=== PATIENT | female | born 1955 | race Caucasian/White ===

== ENCOUNTER 2022-08-12 13:41 | Outpatient (CLI) | payer MEDICARE, SELFPAY ==
[2022-08-12 21:49] LABS: Albumin* 4.1 g/dL (3.3-5.0); Chloride* 105 mmol/L (96-114)
[2022-08-12 21:50] LABS: Potassium* 3.8 mmol/L (3.6-5.1); Sodium* 138 mmol/L (135-149)
[2022-08-12 21:52] LABS: Alkaline Phosphatase* 86 U/L (40-150); Aspartate Amino Transferase* 32 U/L (12-35); Blood Urea Nitrogen* 17 mg/dL (7-30); Carbon Dioxide* 24 mmol/L (20-32); Cholesterol* 150 mg/dL (90-199); Creatinine* 0.9 mg/dL (0.5-1.5); Estimated Glomerular Filt Rate 70 ml/min; Total Protein* 6.6 g/dL (6.0-8.3)
[2022-08-12 21:53] LABS: Alanine Aminotransferase* 32 U/L (4-35); Calcium* 9.5 mg/dL (8.4-10.6); Glucose* 109 mg/dL (60-115); HDL Cholesterol* 54 mg/dL (>=50); LDL Cholesterol Calculated 65 mg/dL (<100); Triglycerides* 157 mg/dL (40-149)
== END 2022-08-12 13:42 | disposition home or self-care (01) ==
PROVIDERS: PCP Family Medicine; Visit Provider Family Medicine
DX: Z00.00 Encounter for general adult medical examination without abnormal findings (principal); E03.9 Hypothyroidism, unspecified; E78.00 Pure hypercholesterolemia, unspecified; I10 Essential (primary) hypertension
CPT/HCPCS: 80053; 80061; 84443

== ENCOUNTER 2022-08-17 15:01 | Outpatient (CLI) | payer MEDICARE, SELFPAY ==
--- NOTE | 2022-08-17 15:30 | CRLHL7_ITS ---
For Patients: As a result of the Century Cures Act, medical imaging exams and procedure reports are released immediately into your electronic medical record. You may view this report before your referring provider. If you have questions, please contact your health care provider. DXA BONE MINERAL DENSITY STUDY Reason for exam: Screening. Right hip arthroplasty. Current height (in): 62.0 Weight (lb): 235.0 Menopause age: 44 Ethnicity: White 1. Have you had a previous hip or vertebral fracture? No. 2. Have you had any fractures during your adult life which did not result from significant trauma (e.g., auto accident)? No. 3. Did either of your parents have a hip fracture? No. 4. Do you smoke? No. 5. Have you ever taken Glucocorticoids? No. 6. Do you have rheumatoid arthritis? No. 7. Do you have secondary osteoporosis? No. 8. Do you drink 3 or more alcoholic drinks per day? No. 9. Are you being treated for osteoporosis? No. 10. Have you ever taken any of the following medications: Actonel, Evista, Fosamax, Miacalcin, Reclast, Boniva, Forteo, HRT (i.e. estrogen/hormone therapy), Protelos, Prolia, Vitamin D, Calcium, other ??? please specify. ANSWER: Yes, calcium. 11. Do you have any of the following medical conditions: Anorexia or bulimia, asthma or emphysema, end stage renal disease, hyperparathyroidism, any seizure disorders, cancer, inflammatory bowel diseases, hysterectomy, other ??? please specify. ANSWER: Yes, hysterectomy. 12. What was your maximum height (inches)? 64 13. Do you perform weight bearing exercise regularly? No. 14. Do you regularly consume dairy products? Yes. 15. Do you drink caffeinated beverages? Yes. 16. At what age did your period start? 11 17. Are you premenopausal? No. 18. How many full term pregnancies have you had? 2 19. Have you ever missed your period for more than 6 months in a row (not including or menopause)? No. TECHNIQUE: Bone mineral density study was performed using the [employer]. FINDINGS: The results of the study expressed as bone mineral density (BMD) are as follows: Lumbar spine L1 to L3: BMD: 1.095 g/cm2. T-score: 0.7. Z-score: 2.6. Neck Left: BMD: 0.666 g/cm2. T-score: -1.7. Z-score: 0.0. Total Left: BMD: 0.833 g/cm2. T-score: -0.9. Z-score: 0.5. Radius Left 33%: BMD: 0.642 g/cm2. T-score: -0.9. Z-score: 1.1. IMPRESSION: Osteopenia. *Comparison exams done prior to 03/2020 were performed on different unit, [employer]. COMPARISON: Compared with scan of 08/20/2020, the bone mineral density has decreased by 0.3 percent at the spine and increased by 0.6 percent at the hip. Compared with scan of 04/02/2018, the bone mineral density has increased by 6.9 percent at the spine and increased by 3.8 percent at the hip. FRAX 10-year Fracture Risk Major Osteoporotic Fracture: 8.5 percent Hip Fracture: 1.1 percent Reported Risk Factors: [place] () Neck BMD=0.666, BMI=43.0 Suhail Ferrari M.D. Diagnostic Radiologist [email or web address] DSM/pjt PT/Dictated by: Suhail Ferrari MD @ 08/18/2022 9:23:00 AM (Electronically Signed)
== END 2022-08-17 15:02 | disposition home or self-care (01) ==
PROVIDERS: PCP Family Medicine; Visit Provider Family Medicine
DX: Z13.820 Encounter for screening for osteoporosis (principal); M85.89 Other specified disorders of bone density and structure, multiple sites; Z78.0 Asymptomatic menopausal state
CPT/HCPCS: 77080

== ENCOUNTER 2022-08-22 08:54 | Outpatient (CLI) | payer MEDICARE, SELFPAY ==
--- NOTE | 2022-08-22 09:15 | CRLHL7_ITS ---
For Patients: As a result of the Cures Act, medical imaging exams and procedure reports are released immediately into your electronic medical record. You may view this report before your referring provider. If you have questions, please contact your health care provider. BILATERAL SCREENING MAMMOGRAM WITH COMPUTER-AIDED DETECTION AND TOMOSYNTHESIS TECHNIQUE: CC and MLO views were obtained. These mammographic images have been obtained using full-field digital technique. These mammographic images were interpreted with the benefit of computer-aided detection. Breast Tomosynthesis was used in this interpretation. COMPARISON FILM: 08/09/21, 07/01/20, 06/13/19. FINDINGS: There are scattered areas of fibroglandular density IMPRESSION: There is no radiographic evidence for malignancy. ASSESSMENT: BI-RADS Category 1: Negative RECOMMENDATION: Routine screening mammogram in 1 year. A lay language report of this examination will be provided to the patient. Suhail Ferrari M.D. Diagnostic Radiologist [email or web address] GUNNER/fermin / be/Dictated by: Suhail Ferrari MD @ 08/22/2022 12:18:00 PM (Electronically Signed)
== END 2022-08-22 08:55 | disposition home or self-care (01) ==
PROVIDERS: PCP Family Medicine; Visit Provider Family Medicine
DX: Z12.31 Encounter for screening mammogram for malignant neoplasm of breast (principal)
CPT/HCPCS: 77063; 77067

== ENCOUNTER 2022-08-23 08:32 | Outpatient (CLI) | payer MEDICARE, SELFPAY ==
--- NOTE | 2022-08-23 09:00 | CRLHL7_ITS ---
For Patients: As a result of the Cures Act, medical imaging exams and procedure reports are released immediately into your electronic medical record. You may view this report before your referring provider. If you have questions, please contact your health care provider. MYOCARDIAL PERFUSION SCAN, 08/23/2022 CLINICAL HISTORY: 67-year-old female. Chest tightness. Hypertension. Sleep apnea. Type 2 diabetes. Family history of heart disease. Height: 5 feet 1 inch. Weight: 235 pounds. TECHNIQUE: (Resting SPECT and Stress Gated SPECT with wall motion and ejection fraction) Stress: Pharmacologic - Regadenoson (0.4 mg) (IV) Dose (Stress/Rest): 38 mCi / 10.76 mCi Tc-99m Sestamibi Comparison: None FINDINGS: There is good uptake of activity by the left ventricle. No left ventricular enlargement is noted. End diastolic volume: 49 mL. End systolic volume: 23 mL. There is mild soft tissue attenuation. No other significant fixed or reversible defects are identified. Gated images demonstrate a normal left ventricular ejection fraction of 53 percent. No regional wall motion abnormalities are identified. IMPRESSION: 1) No evidence of significant myocardial ischemia or infarction. 2) Normal left ventricular ejection fraction of 53 percent. This study was jointly reviewed by radiology and cardiology. SOLIS BROWN M.D. Diagnostic/Nuclear Medicine Radiologist [email or web address] JMN:jacinta RICHARDSON M.D. Department of Cardiology jacinta/Dictated by: Solis Brown MD @ 08/23/2022 11:12:00 AM (Electronically Signed)
[2022-08-23] MEDS: REGADENOSON 0.4 MG/5 ML SYRINGE IVP (09:55)
[2022-08-23] MEDS: SODIUM CHLORIDE 0.9 % (FLUSH) 10 ML SYRINGE IVF (09:55)
[2022-08-23 10:35] VITALS: BP 137/78; PULSE 79
--- NOTE | 2022-08-23 11:00 | CRLHL7_ITS ---
For Patients: As a result of the 21st Century Cures Act, medical imaging exams and procedure reports are released immediately into your electronic medical record. You may view this report before your referring provider. If you have questions, please contact your health care provider. INDICATION: DYSPNEA ON EXERTION COMPARISON: none TECHNIQUE: CT volumetric acquisition was performed of the thorax during intravenous infusion of 95 cc Isovue 370 nonionic intravenous contrast. Please note that all CT scans at this facility use dose modulation, iterative reconstruction, and/or weight-based dosing when appropriate to reduce radiation dose to as low as reasonably achievable. FINDINGS: The CT images are of acceptable quality and demonstrate normal uniform vascular enhancement within the pulmonary arteries. There are no suspicious filling defects which would indicate pulmonary thromboemboli. There is no evidence of pleural or pericardial fluid. The heart and thoracic aorta appear normal. There is no evidence of lymphadenopathy within the central mediastinum or within either axilla. On lung window settings, there is no evidence of pneumothorax. The pulmonary parenchyma has uniform density and there is no evidence of hemorrhage or pneumonia. Several small pulmonary nodules are present on the right measuring up to 4 millimeters, 5/80. Mild areas of scarring noted within both lungs dependently. Fatty infiltration of the liver. Gallbladder absent. 2.7 cm hiatal hernia. IMPRESSION: No evidence of pulmonary thromboembolism. No infiltrate or fibrosis. Mild dependent scarring. Few scattered pulmonary nodules measuring up to 4 millimeters. Optional follow-up CT in 1 year. Please note that all CT scans at this facility use dose modulation, iterative reconstruction, and/or weight-based dosing when appropriate to reduce radiation dose to as low as reasonably achievable. Dictated by Suhail Ferrari MD @ 08/23/2022 11:42:58 AM (Electronically Signed)
--- NOTE | 2022-08-23 17:18 | PM.ST ---
Stress Test Note Date Date Seen: 08/23/22 Date of test: 08/23/22 Providers Primary care provider: Cody Yepez Stress test physician: Luis Dudley Stress Test Note Stress test ordered: Lexiscan Indication for test: Chest pain, dyspnea on exertion Stress test medicine: Lexiscan Results discussion: Patient is a very nice lady presents for the above test after review of the cardiac stress test medical history form, she would like to proceed, pretest EKG shows a ventricular rate of 68, blood pressure 142/[address] wave changes are noted, standard Lexiscan protocol is followed over 5 minute., there were no complications, there were no dysrhythmias, she had no chest pain shortness of breath or any other anginal symptoms. She recovered normally in the recovery. Impression: Negative electrographic portion of Lexiscan Follow up suggested: Await nuclear images these will be read by Cardiology and nuclear Medicine, clinical correlation with these will be needed, patient left this testing facility in excellent condition.
== END 2022-08-23 08:33 | disposition home or self-care (01) ==
LOC: STRESS 08:35
PROVIDERS: PCP Family Medicine; Visit Provider Family Medicine
DX: R07.9 Chest pain, unspecified (principal); R06.09 Other forms of dyspnea; R05.9 Cough, unspecified
CPT/HCPCS: 71260; 78452; 93016; 93017; A9500; J2785; Q9967

== ENCOUNTER 2023-08-04 12:23 | Outpatient (CLI) | payer MEDICARE, SELFPAY ==
--- NOTE | 2023-08-04 13:00 | MR_ITS ---
[facility] [address] [facility] [address] Phone:?[phone] Fax:?[phone] Referring Physician Information: Emeka Barker M.D. [address] [facility] [address] Phone:?[phone] Fax:?[phone] Patient:Darci Whitman D.O.B:?1955 Sex:?Female Phone:?[phone] [facility] MRN:?[id number] Exam Date:?08/04/2023 EXAM: MRI EXAMINATION OF THE RIGHT SHOULDER CLINICAL INFORMATION: Right shoulder pain. No specific injury. History of surgery. Evaluate rotator cuff tear. TECHNICAL INFORMATION: Coronal STIR as well as axial, sagittal and coronal PD and T2-weighted images acquired. No prior studies for comparison. INTERPRETATION: Bones: There is a postsurgical appearance of AC joint resection. Mild undersurface spurring involves the acromion. No evidence for an occult fracture or AVN. Rotator Cuff: Series 9 images 8 through 10 demonstrate a 0.8 cm AP by 2.7 cm mediolateral undersurface tear through the central supraspinatus tendon insertion. There is likely a tiny full-thickness component of tear at its anterior aspect. There is no evidence for tendon retraction or muscle belly atrophy. Mild tendinopathy with a slender intrasubstance partial tear involving the anterior infraspinatus tendon. The teres minor tendon is intact. The subscapularis tendon is intact. No appreciable rotator cuff muscle belly atrophy. Coracoacromial arch: Mild undersurface irregularity involving the acromion. The bony acromiohumeral interval is measuring 5 mm. There is no thickening identified of the coracoacromial ligament. Acromioclavicular joint: Status post AC joint resection. No deformity of the underlying supraspinatus tendon. Moderate fluid and edema signal within the subacromial/subdeltoid bursa areas. Biceps tendon: The long head biceps tendon is intact and nondisplaced from the bicipital groove. Glenohumeral joint and labrum: No significant glenohumeral joint effusion. No discrete loose body within the joint. Osteochondral surfaces appear relatively preserved. No discrete SLAP tear. No other definite evidence for labral tear. No discrete paralabral cyst is identified. CONCLUSION: 1. There is a small undersurface tear through the central fibers of the supraspinatus tendon insertion. A tiny full-thickness component appears likely present at its anterior aspect. No tendon retraction or muscle belly atrophy. 2. Mild infraspinatus tendinopathy with a slender intrasubstance partial tear. 3. Status post AC joint resection. Mild to moderate narrowing is measured of the acromiohumeral interval. Moderate subacromial/subdeltoid bursitis. 4. Unremarkable and intact long head biceps tendon. 5. No evidence for glenohumeral chondromalacia. There is no glenohumeral joint effusion. KES Electronically signed on 08/04/2023 2:52:00 PM by Umberto Roman M.D.
== END 2023-08-04 12:24 | disposition home or self-care (01) ==
LOC: MRI 12:24
PROVIDERS: PCP Family Medicine; Visit Provider Orthopaedic Surgery Sports Medicine
DX: M25.511 Pain in right shoulder (principal); M75.101 Unspecified rotator cuff tear or rupture of right shoulder, not specified as traumatic; M75.51 Bursitis of right shoulder
CPT/HCPCS: 73221

== ENCOUNTER 2023-08-11 13:08 | Outpatient (CLI) | payer MEDICARE, SELFPAY | END 2023-08-11 13:09 | disposition home or self-care (01) | PROVIDERS: PCP Family Medicine; Visit Provider Family Medicine | DX: Z01.818 Encounter for other preprocedural examination (principal); E03.9 Hypothyroidism, unspecified; I10 Essential (primary) hypertension; E78.00 Pure hypercholesterolemia, unspecified; E66.9 Obesity, unspecified | CPT/HCPCS: 80053; 80061; 84443 ==

== ENCOUNTER 2023-08-14 08:44 | Day surgery (SDC) | payer MEDICARE, SELFPAY ==
[2023-08-14] VITALS (15 sets, daily range): BP systolic 98–138; BP diastolic 62–98; PULSE 60–72; RESP 14–18; TEMP 36.3–37.2; O2SAT 91–99; BMI 42.5
[2023-08-14] MEDS: fentaNYL 100 MCG/2 ML inj IVP (10:05)
[2023-08-14] MEDS: MIDAZOLAM HCL 1 MG/ML inj IVP (10:05)
[2023-08-14] MEDS: LACTATED RINGERS 1000 ML 1,000 ML 100 ML IV (10:05)
--- NOTE | 2023-08-14 10:13 | SUR.PREOP ---
Pt ready for surgery teds hose on, nasal swab done, shoulder scrub done, pre-op questions answered, await CHAIN PULLER for nerve block
[2023-08-14] MEDS: SODIUM CHLORIDE 0.9 % (FLUSH) 10 ML SYRINGE IVF (10:36)
--- NOTE | 2023-08-14 10:36 | SUR.PREOP ---
TIME?OUT:?1030 PT/RN/MDA?VERIFICATION?OF?SURGICAL?SITE,?PROCEDURE,?AND?CONSENT OBTAINED?PRIOR?TO?INVASIVE?PROCEDURE. right shoulder gray lalitha stokes,pt, consent
[2023-08-14] MEDS: CEFAZOLIN 2 GM in 0.9 % SODIUM CHLORIDE Mini-bag 100 ML IVPB (11:10)
--- NOTE | 2023-08-14 11:27 | W.PM.NB ---
Nerve Block Nerve Block Time Seen by Provider: 10:45 Date Seen: 08/14/23 Type of block requested by surgeon for post-operative analgesia: supraclavicular Side: right Time out performed: Yes Verification of patient name: Yes Verification of date of : Yes Site marking: site marked Name of person performing procedure: pravin Continuous monitoring Was continuous monitoring of O2 sat, B/P, groundwater monitoring technician, recorded every 15 minutes?: Yes Procedure Checklist: sterile prep, needles and gloves Ultrasound guided. Images saved: Yes Medications given in 5ml increments after negative aspiration: Ropivicaine %: 0.5 mL: 20 Needle gauge: 20 Decadron (mg): 10 Precedex (mcg): 25 Patient tolerated procedure well: Yes Block Charges Block Charge (with Pro Fee): Brachial Plexus Use of Ultrasound Machine for Block: Yes- US Guidance/pain block
[2023-08-14] MEDS: EPINEPHrine 1 MG in SODIUM CHLORIDE IRRIG SOLUTION 3,000 ML 3001 MG IRRIGATION ×3 (11:50→12:25)
--- NOTE | 2023-08-14 12:24 | P.ORPRC_ITS ---
Procedure Note Date of procedure: 08/14/23 Procedure: PREOPERATIVE DIAGNOSES: 1. Right shoulder rotator cuff tear. POSTOPERATIVE DIAGNOSES: 1. Right shoulder rotator cuff tear - border subscapularis and high-grade partial-thickness supraspinatus. NAME OF OPERATION: 1. Right shoulder arthroscopic rotator cuff repair - upper border subscapularis and high-grade partial-thickness supraspinatus SURGEON: Emeka Barker MD RADIOTELEPHONE TECHNICAL OPERATOR: Shaggy STEPHENSON. Of note, a skilled certified dental assistant was critical for this case to aide in patient positioning, suture manipulation, arm positioning, instrument positioning, and closure. ANESTHESIA: General plus preoperative supraclavicular block. EBL: 25 mL IMPLANTS: Arthrex 4.75 mm BioComposite SwiveLock suture anchor (x1); Arthrex 5.5 mm BioComposite corkscrew suture anchor (x1); Arthrex 5.5 mm BioComposite SwiveLock suture anchor (x2); COMPLICATIONS: None evident INDICATIONS: The patient is a pleasant, 68-year-old female who has experienced right shoulder pain that has been increasing in recent time. Physical exam and imaging were consistent with a rotator cuff tear. Given their findings, as well as the weakness and pain, and inadequate response to nonoperative management, recommendation was made for surgery. FINDINGS: Exam under anesthesia revealed stable shoulder with excellent range of motion. The diagnostic arthroscopy revealed grade 3 chondromalacia humeral head near the lesser tuberosity. The Subscapularis tendon was torn high-grade partial-thickness with moderate retraction of the upper border. The long head of the biceps tendon was intact. The superior rotator cuff tendon was found to be torn high-grade partial-thickness manner of the posterior to midportion supraspinatus. The labrum was relatively intact. No loose bodies were identified within the pouch or subscapularis recess. PROCEDURE: Following a thorough discussion of risks, benefits, and alternatives, consent was obtained and the right shoulder was marked. The patient was brought to the operating room and placed supine on the operating table. Induction of anesthesia was completed after preoperative supraclavicular block was administered in preop holding. Appropriate time out was performed identifying proper patient, site, and procedure. 2 g IV Ancef was administered within 1 hour of incision preoperatively. The right upper extremity was prepped and draped in the appropriate sterile fashion using ChloraPrep prep. This was after the patient was positioned in the beach chair with their head in neutral alignment and all bony prominences well padded. The shoulder was insufflated with 20mL of normal saline via an 18g spinal needle from a posterior approach. An 11 blade skin incision allowed a blunt trochar to be inserted and diagnostic arthroscopy to be performed with the findings as noted above. An anterior portal was established with an outside in technique. This allowed the probe to be inserted and confirm the diagnostic arthroscopic findings. The shaver was then inserted and allowed debridement of the lesser tuberosity in preparation for rotator cuff repair. Following this, the upper border subscapularis was repaired after debriding the lesser tuberosity with the shaver and [place] cautery. Subscapularis was captured in horizontal mattress fashion with a fiber tape suture. The tails were brought to a single anchor in the lesser tuberosity with excellent reapproximation of the subscap tendon and good excursion/tension. Thereafter, the subacromial space was entered. Here, a complete bursectomy was performed. Further inspection of the supraspinatus and infraspinatus rotator cuff was p erformed. This identified the tear as noted above. The margins of the tear were debrided, and the greater tuberosity was debrided with a combination of the [place] cautery, shaver, and bur on reverse setting. [After gentle decortication, a single corkscrew suture anchor was placed and the 4 tails passed independently. These were tied in tension was relieved on the rotator cuff. The tails were brought to 2 separate lateral row anchors with excellent footprint compression achieved. Prior to anchor armor reconnaissance vehicle driver removal, the eyelet sutures were tugged on for each anchor and found that the anchor had excellent stability within the bone. The shoulder was placed through range of motion and found to be stable. The rotator cuff was re-probed and found to be stable. Instruments were removed. Excess fluid was drained, closure performed with 4-0 Monocryl and Steri-Strips. Dressings were applied. Sling was applied. The patient was awoken from anesthesia and transferred to the PACU in stable condition. A skilled certified dental assistant was critical for this case to aid in patient positioning, limb positioning, skill to manipulate arthroscopic instruments and camera, suture management, patient safety, and closure. PLAN: 1. Elbow, forearm, wrist and digit range of motion as tolerated. 2. Encouraged ice. 3. Oxycodone for pain as needed. 4. Sling at all times except for ROM and showering. 5. Follow up with PA visit in 1-2 weeks for wound check. Initiate physical therapy following that visit for passive range of motion. Initiate active assisted range of motion at 6-8 weeks. May do pendulums now.
--- NOTE | 2023-08-14 12:24 | W.PM.H&PU ---
History & Physical Update History & Physical Update H&P Reviewed and patient assessed: No changes noted
--- NOTE | 2023-08-14 13:03 | W.ANESCHARGE ---
Anesthesia Charges Start Date/Time Anesthesia Start Date: 08/14/23 Anesthesia Start Time: 10:46 Stop Date/Time Anesthesia Stop Date: 08/14/23 Anesthesia Stop Time: 12:45
--- NOTE | 2023-08-14 14:20 | SUR.PHASEII ---
encourage pt to take deep breaths and cough incentive spirometer given to pt to try and increase volumes
--- NOTE | 2023-08-14 14:24 | SUR.PHASEII ---
Pt is on CPAP ay home encouraged her to use CPAP when she gets home and through out the night explained plan to daughter also
--- NOTE | 2023-08-14 14:34 | SUR.PHASEII ---
Pts o2 sats still 89% talked to MARKETING ASSISTANT MANAGER will get pts CPAP here and place it on her if sats are normal will discharge to home with pts daughter
--- NOTE | 2023-08-14 14:55 | SUR.PHASEII ---
daughter brought CPAP machine in pt hooked it up and will continue to monitor
--- NOTE | 2023-08-14 15:18 | SUR.PHASEII ---
o2 sats 93%on CPAP spoke with psychiatric rn and pt is able to go home with daughter if daughter is comfortable(daughter is a RN) pt denies any SOB v.s.s pt needs to wear CPAP when she gets home at all times until nerve block wears off daughter and pt understood
--- NOTE | 2023-08-15 07:29 | P.NB_ITS ---
Nerve Block Nerve Block Time Seen by Provider: 10:20 Date Seen: 08/14/23 Type of block requested by surgeon for post-operative analgesia: supraclavicular Side: right Time out performed: Yes Verification of patient name: Yes Verification of date of : Yes Site marking: site marked Name of person performing procedure: pravin Continuous monitoring Was continuous monitoring of O2 sat, B/P, compliance monitor, recorded every 15 minutes?: Yes Procedure Checklist: sterile prep, needles and gloves Ultrasound guided. Images saved: Yes Medications given in 5ml increments after negative aspiration: Ropivicaine %: 0.5 mL: 20 Needle gauge: 20 Decadron (mg): 10 Precedex (mcg): 25 Patient tolerated procedure well: Yes Block Charges Block Charge (with Pro Fee): Brachial Plexus Use of Ultrasound Machine for Block: Yes- US Guidance/pain block
== END 2023-08-14 15:22 | disposition home or self-care (01) ==
PROVIDERS: PCP Family Medicine; Visit Provider Orthopaedic Surgery Sports Medicine
PROC: (CPT 29805; principal; 2023-08-14 11:00)
DX: M75.101 Unspecified rotator cuff tear or rupture of right shoulder, not specified as traumatic (principal); G89.18 Other acute postprocedural pain
CPT/HCPCS: 29827; 01630; 64415; 76942; 82962; C1713; J0171; J0330; J0690; J1100; J2250; J2704; J2795; J3010; J7120; L3670

== ENCOUNTER 2023-09-26 13:59 | Outpatient (CLI) | payer MEDICARE, SELFPAY | END 2023-09-26 14:00 | disposition home or self-care (01) | LOC: NFLDREF 09-28 05:59 | PROVIDERS: PCP Family Medicine; Referring Provider Family Medicine; Visit Provider Family Medicine | DX: E11.9 Type 2 diabetes mellitus without complications (principal); E87.6 Hypokalemia; I10 Essential (primary) hypertension; E03.9 Hypothyroidism, unspecified; E78.00 Pure hypercholesterolemia, unspecified; B37.2 Candidiasis of skin and nail; M85.80 Other specified disorders of bone density and structure, unspecified site | CPT/HCPCS: 82043; 82570 ==

== ENCOUNTER 2024-02-19 10:53 | Outpatient (CLI) | payer MEDICARE, SELFPAY ==
--- OUTSIDE RECORDS SUMMARY | 2024-02-19 10:58 | XMS_ITS | Clinical Summary ---
Author Name Unknown Organization [email or web address] [facility] [employer] [facility] Address [address] Care Team Providers Care Canary Breeder Name Role Phone Eren Vick MD Primary Care Provider Allergies Active Allergy Reactions Criticality Noted Date Comments Aspirin Hives 06/10/2006 Beeswax Dyspnea 05/16/2019 Medications Medication Sig Dispensed Refills Start Date End Date Status DIAZEPAM 5 MG TAB one tab qhs prn 0 Ac tive TRIAMTERENE-HYDROC HLOROTHIAZID 37.5 MG-25 MG CAP one daily 0 Active MECLIZINE 25 MG CAP varify dose 0 Active METROGEL TOP apply bid 0 Active Prochlorperazine Maleate 10 mg capsule Take 1 capsule by mouth every 6 hours if needed for Nausea/Vomiting. 0 09/14/2011 Active SUMAtriptan NASAL (IMITREX) 5 mg/actuation nasal spray Inhale 1 [place] in the nostril(s) every 2 hours if needed for Migraine. Max dose: 40mg per 24 hrs. 1 Bottle 0 04/16/2012 Active traMADol (ULTRAM) 50 mg tabletIndications: Stenosis, spinal, lumbar Take 1 tablet by mouth every 6 hours if needed for Pain. 60 tablet 1 04/01/2015 Active HYDROcodone-acetam inophen, 7.5-325 mg, (NORCO 7.5-325) 7.5-325 mg per tabletIndications: Stenosis, spinal, lumbar Take 1 tablet by mouth 4 times daily if needed for Pain. Max acetaminophen dose: 4000mg in 24 hrs. 36 tablet 0 03/09/2016 Active levothyroxine (SYNTHROID) 88 mcg tablet 03/31/2016 Active SUMAtriptan NASAL (IMITREX) 20 mg/actuation nasal spray 4 03/10/2016 Active Active Problems Problem Noted Date Diagnosed Date Personal history of colonic polyps 01/03/2014 Overview: Colonoscopy 12/2013 normal repeat in 5 years Colonoscopy 04/2019 polyps, repeat in 5 years Stenosis, spinal, lumbar 11/30/2011 Osteoarthritis, knee 11/30/2011 Edema 06/10/2006 Migraine, unspecified, witho ut mention of intractable migraine without mention of status migrainosus 06/10/2006 Unspecified essential hypertension 06/10/2006 Meniere's disease, unspecified 06/10/2006 Other pulmonary embolism and infarction 06/10/20 06 Overview: after knee surgery Rosacea 06/10/2006 Unspecified sleep apnea 06/10/2006 Immunizations Name Administration Dates Next Due Hepatitis A (Adult) 07/30/2004 Hepatitis B (Adult) 06/24/1994,01/18/1994,1993 Influenza, IIV3 (Age >=3 years) 09/09/2005,08/08,07/30/2004 Td (Age >=7 Years) 05/18/1994 Family History Medical History Relation Name Comments Heart Disease Maternal Grandmother Stroke Mother Thyroid Disease Sister Relation Name Status Comments Father Maternal Grandmother Mother Sister Social History Tobacco Use Types Packs/Day Years Used Date Smoking Tobacco: Never Smokeless Tobacco: Never Tobacco Cessation:Counseling Given: Yes Alcohol Use Standard Drinks/Week Comments Yes 0 (1 standard drink = 0.6 oz pur e alcohol) occas Sex and Gender Information Value Date Recorded Sex Assigned at Not on file Gender Identity Not on file Sexual Orientation Not on file Obstetrics History Last Filed Vital Signs Vital Sign Reading Time Taken Comments Blood Pressure 138/83 04/08/2016 9:40 AM CDT Pulse 68 04/08/2016 9:40 AM CDT Temperature 36.5 ??C (97.7 ??F) 04/08/2016 9:40 AM CD T Respiratory Rate 18 04/08/2016 9:40 AM CDT Oxygen Saturation 100% 04/08/2016 9:40 AM CDT Inhaled Oxygen Concentration - - Weight 97.5 kg (215 lb) 04/08/2016 9:40 AM CDT Height 160 cm (5' 2.99) 04/01/2015 1:27 PM CDT Body Mass Index 38.1 04/01/2015 1:27 PM CDT Plan of Treatment Health Maintenance Due Date Last Done Comments Tdap 1965 Depression screening for age 12+ 1966 BMI (ht and wt on same day) for age 18+ 1972 Hepatitis C screening for ag e 18-79 1972 Mammogram for age 45-75 1999 Tetanus booster 05/18/2004 05/18/1994 Zoster (shingles) series for age 50+ (1 of 2) 2004 Lipids for age 45-75 03/28/2010 03/28/2005, 12/13/2004, 11/08/2004, Additional history exists DEXA/DXA scan for age 65+ 2019 Pneumococcal series for age 65+ (1 of 1 - PCV) 2019 COVID-19 vaccine series ( - 2022-24 season) 2023 Colonoscopy through age 75 05/16/202405/16, 05/16/2019, 05/16/2019, Additional history exists Influenza for age 65+ 06/23/2024 09/09/2005 , 08/08/2005, 07/30/2004 Procedures Procedure Name Priority Date/Time Associated Diagnosis Comments COLONOSCOPY 05/16/2019 11:45 AM CDT LIPID PANEL Timed 03/28/2005 9:40 AM CDT from Last 3 Months or Most Recently Relevant to Health Maintenance Results * COLONOSCOPY (05/16/2019 11:45 AM CDT) 05/16/2019 11:4 5 AM CDT Narrative Transcriptions Deandre Chaudhari MD - 05/16/2019 12:24 PM CDT Patient Name: Kalpana Whitman Procedure Date: 05/16/2019 Gender: Female Date of : 1955 Admit Type: Outpatient Procedure: Colonoscopy Proceduralist: Deandre Chaudhari MD , Wandy Bowers (Nurse) Indications/Pre-Op Diagnosis: Surveillance: Personal history ofadenomatous polyps on last colonoscopy 5 years ago, Last colonoscopy: December 2013 Medications: Fentanyl 100 micrograms IV, Midazolam 2 mgIV Procedure Description: The patient had risks, benefits and alternatives explained to andgave informed consent. The patient had a stable cardiopulmonary status and judged an adequate candidate for conscious sedation. The PCF-Q290AL [id number] was passed through the anus and advanced tothe cecum, identified by appendiceal orifice and ileocecal valve. The colonoscopy was performed without difficulty. The patient toleratedthe procedure well. The quality of the bowel preparation was good. The ileocecal valve, appendiceal orifice, and rectum were photographed. Complications: No immediate complications. Estimated Blood Loss & Specimen: Estimated blood loss: none. Specimen collected - Yes and sent to Laboratory Findings: The perianal and digital rectal examinations were normal. A 4 mm polyp was found in the ascending colon. The polyp was sessile. The polyp was removed with a cold snare. Resection and retrieval were complete. A 3 mm polyp was found in the transverse colon. The polyp wassessile. The polyp was removed with a cold biopsy forceps. Resection and retrieval were complete. The exam was otherwise without abnormality on direct and retroflexion views. Impressions/Post-Op Diagnosis: - One 4 mm polyp in the ascending colon, removed with a cold snare. Resected and retrieved. - One 3 mm polyp in the transverse colon, removed with a cold biopsy forceps. Resected and retrieved. - The examination was otherwise normal on direct and retroflexionviews. Recommendation: - Patient has a contact number available for emergencies. The signsand symptoms of potential delayed complications were discussed with the patient. Return to normal activities tomorrow. Written discharge instructions were provided to the patient. - Resume previous diet. - Continue present medications. - Repeat colonoscopy in 5 years for surveillance. Moderate Sedation: Moderate (conscious) sedation was administered by the endoscopy nurse and supervised by the endoscopist. The following parameters were monitored: oxygen saturation, heart rate, respiratory rate, blood pressure, adequacy of pulmonary ventilation and reponse to care. [facility] flowsheets and nursing notes for moderate sedation details. Total physician intraservice time was 21 minutes. Deandre Chaudhari MD 05/16/2019 12:24:21 PM This report has been signed electronically. Note Initiated On: 05/16/2019 11:45 AM Procedure Code(s): --- Professional --- 81900, Colonoscopy, flexible; with removalof tumor(s), polyp(s), or other lesion(s) bysnare technique 15130, 59, Colonoscopy, flexible; withbiopsy, single or multiple Diagnosis Code(s): --- Professional --- Z86.010, Personal history of colonicpolyps D12.2, Benign neoplasm of ascending colon D12.3, Benign neoplasm of transverse colon (hepatic flexure or splenic flexure) CPT copyright 2018 [employer]. All rights reserved. The codes documented in this report are preliminary and upon pipe stem sawyer reviewmay be revised to meet current compliance requirements. Scope In: 12:00:50 PM Scope Withdrawal Time 0 hours 9 minutes 33 seconds Scope Out: 12:19:27 PM Deandre Chaudhari MD PROCEDURE ORD * (ABNORMAL) LIPID PANEL (03/28/2005 9:40 AM CDT) CHOLESTEROL,TOTAL 210(H) 110 - 199 mg/dL [facility] TRIGLYCERIDES 99 40 - 149 mg/dL [facility] HDL CHOLESTEROL 50 41 - 95 mg/dL [facility] CHOL/HDL RATIO 4.20 <4.51 [facility] LDL CHOLESTEROL 140(H) 60 - 130 mg/dL [facility] PATIENT STATUS Fasting [facility] 03/28/2005 9:40 AM CDT 03/28/2005 2:52 PM CDT Jonny Patterson CHEMISTRY [facility] INTERNAL ZIP [address] [address] from Last 3 Months or Most Recently Relevant to Health Maintenance Care Teams Canary Breeder Relationship Specialty Start Date End Date Eren Vick MD PCP - General 09/09/08
--- NOTE | 2024-02-19 11:30 | MM_ITS ---
Patient: MADONNA GRIFFIN Facility:?[facility] Patient ID:?[id number] Site Patient ID:?[id number] Site :?1955 Study:?XRay-Breast Bilateral 3D W/CAD-02/19/2024 11:26:44 AM Ordering Physician:Kush Final Report: BILATERAL SCREENING MAMMOGRAM WITH COMPUTER-AIDED DETECTION AND TOMOSYNTHESIS TECHNIQUE: CC and MLO views were obtained. These mammographic images have been obtained using full-field digital technique. These mammographic images were interpreted with the benefit of computer-aided detection. Breast Tomosynthesis was used in this interpretation. COMPARISON FILM: 08/22/22, 08/09/21, 07/01/20. FINDINGS: The breasts are heterogeneously dense, which may obscure small masses. IMPRESSION: There is no radiographic evidence for malignancy. ASSESSMENT: BI-RADS Category 2: Benign RECOMMENDATION: Routine screening mammogram in 1 year. A lay language report of this examination will be provided to the patient. Suhail Ferrari M.D. Diagnostic Radiologist [email or web address] DSM/sp R& Transcribed: 2:42 p.m. SP/Dictated by: Suhail Ferrari MD @ 02/19/2024 12:18:00 PM SP/Dictated by: Suhail Ferrari MD @ 02/19/2024 12:18:00 PM Signed by:?Suhail Ferrari MD @02/19/2024 3:05:16 PM (Electronic Signature)
== END 2024-02-19 10:54 | disposition home or self-care (01) ==
LOC: MAMMO 10:55
PROVIDERS: PCP Family Medicine; Visit Provider Family Medicine
DX: Z12.31 Encounter for screening mammogram for malignant neoplasm of breast (principal); R92.2 Inconclusive mammogram
CPT/HCPCS: 77063; 77067

== ENCOUNTER 2024-04-15 12:43 | Outpatient (CLI) | payer MEDICARE, SELFPAY ==
--- OUTSIDE RECORDS SUMMARY | 2024-04-15 12:47 | XMS_ITS | Clinical Summary ---
Author Organization [employer] [facility] [employer] [facility] Address [place], [place] [address] Care Team Providers Care Licensed Surveyor Name Role Phone Eren Vick MD Primary [...] (IMITREX) 5 mg/actuation nasal spray Inhale 1 [place] in the nostril(s) every 2 hours if [...] 1 - PCV) 2019 COVID-19 vaccine series (2022-24 season) 2023 Colonoscopy through age 75 05/16/202405/16, [...] adequate candidate for conscious sedation. The PCF-Q290AL [id number] was passed through the anus and advanced [...] reponse to care. [facility] and nursing notes for moderate sedation details. Total physician intraservice time was 21 minutes. Deandre Chaudhari MD 05/16/2019 12:24:21 PM This report has been signed electronically. Note Initiated On: 05/16/2019 11:45 AM Procedure Code(s): --- Professional --- 07240, Colonoscopy, flexible; with removalof tumor(s), polyp(s), or other lesion(s) bysnare technique 38458, 59, Colonoscopy, flexible; withbiopsy, single or multiple Diagnosis Code(s): --- Professional --- Z86.010, Personal history of colonicpolyps D12.2, Benign neoplasm of ascending colon D12.3, Benign neoplasm of transverse colon (hepatic flexure or splenic flexure) CPT copyright 2018 [employer]. All rights reserved. The codes documented in this report are preliminary and upon crm marketing manager reviewmay be revised to meet current compliance requirements. Scope In: 12:00:50 PM Scope Withdrawal Time 0 hours 9 minutes 33 seconds Scope Out: 12:19:27 PM Deandre Chaudhari MD PROCEDURE ORD * (ABNORMAL) LIPID PANEL (03/28/2005 9:40 AM CDT) CHOLESTEROL,TOTAL 210(H) 110 - 199 mg/dL [facility] TRIGLYCERIDES 99 40 - 149 mg/dL [facility] HDL CHOLESTEROL 50 41 - 95 mg/dL [facility] CHOL/HDL RATIO 4.20 <4.51 [facility] LDL CHOLESTEROL 140(H) 60 - 130 mg/dL [facility] PATIENT STATUS Fasting [facility] 03/28/2005 9:40 AM CDT 03/28/2005 2:52 PM CDT Jonny Patterson CHEMISTRY [facility] INTERNAL ZIP [address] [address] from Last 3 Months or Most Recently Relevant to Health Maintenance Care Teams Licensed Surveyor Relationship Specialty Start Date End Date Eren Vick MD PCP - General 09/09/08
== END 2024-04-15 12:44 | disposition home or self-care (01) ==
LOC: LKVREF 12:44
PROVIDERS: PCP Family Medicine; Visit Provider Family Medicine
DX: L28.2 Other prurigo (principal)
CPT/HCPCS: 80076

== ENCOUNTER 2024-08-06 08:57 | Outpatient (CLI) | payer MEDICARE, SELFPAY ==
--- OUTSIDE RECORDS SUMMARY | 2024-08-07 10:32 | XMS_ITS | Clinical Summary ---
Author Organization [employer] [facility] [employer] [facility] Address [place], [place] [address] Care Team Providers Care Fusion Analyst Name Role Phone Eren Vick MD Primary [...] (IMITREX) 5 mg/actuation nasal spray Inhale 1 [place] in the nostril(s) every 2 hours if [...] 20 mg/actuation nasal spray 4 03/10/2016 Active polyethylene glycol-electrolyte (GOLYTELY) 236-22.74-6.74 -5.86 gram suspensionIndicati ons:Encounter for screening colonoscopy Drink 2 liters the day before the procedure and 2 liters 6 hours prior to procedure. 4000 mL 07/11/2024 Active Active Problems Problem Noted Date Diagnosed Date Personal history of colonic polyps 01/03/2014 Overview (05/17/2019): Colonoscopy 12/2013 normal repeat in 5 years Colonoscopy 04/2019 polyps, repeat in 5 years Stenosis, spinal, lumbar 11/30/2011 Osteoarthritis, knee 11/30/2011 Edema 06/10/2006 Migraine, unspecified, witho ut mention of intractable migraine without mention of status migrainosus 06/10/2006 Unspecified essential hypertension 06/10/2006 Meniere's disease, unspecified 06/10/2006 Other pulmonary embolism and infarction 06/10/20 06 Overview (06/10/2006): after knee surgery Rosacea 06/10/2006 Unspecified sleep apnea 06/10/2006 Encounters Date Type Department Care Team Description 08/06/2024 Telephone [facility] [address] [place] [address] Deandre Chaudhari MD Appointment Reminder (Colonoscopy on 08/14/2024 at [facility]) 06/20/2024 Telephone [facility] [address] [place] [address] Deandre Chaudhari MD Need Meds; Procedure 06/07/2024 Orders Only [facility] [address] [place] [address] Deandre Chaudhari MD <No scans attached> from Last 3 Months Immunizations Name Administration Dates Next Due Hepatitis [...] 04/01/2015 1:27 PM CDT Plan of Treatment Scheduled Procedures Name Priority Associated Diagnoses Date/Ti me SURGICAL PROCEDURE (TYPE PROCEDURE DESCRIPTION BELOW) Encounter for screening colonoscopy Health Maintenance Due Date Last Done Comments [...] 65+ (1 of 1 - PCV) 2019 Colonoscopy through age 75 05/16/202405/16, 05/16/2019, 05/16/2019, Additional history exists COVID-19 vaccine series ( season) 2024 Influenza for age 65+ 06/23/2024 09/09/2005 , [...] adequate candidate for conscious sedation. The PCF-Q290AL [id number] was passed through the anus and advanced [...] reponse to care. [facility] and nursing notes for moderate sedation details. Total physician intraservice time was 21 minutes. Deandre Chaudhari MD 05/16/2019 12:24:21 PM This report has been signed electronically. Note Initiated On: 05/16/2019 11:45 AM Procedure Code(s): --- Professional --- 61395, Colonoscopy, flexible; with removalof tumor(s), polyp(s), or other lesion(s) byab technique 62919, 59, Colonoscopy, flexible; withbiopsy, single or multiple Diagnosis Code(s): --- Professional --- Z86.010, Personal history of colonicpolyps D12.2, Benign neoplasm of ascending colon D12.3, Benign neoplasm of transverse colon (hepatic flexure or splenic flexure) CPT copyright 2018 [employer]. All rights reserved. The codes documented in this report are preliminary and upon braille coder reviewmay be revised to meet current compliance requirements. Scope In: 12:00:50 PM Scope Withdrawal Time 0 hours 9 minutes 33 seconds Scope Out: 12:19:27 PM Deanrde Chaudhari MD PROCEDURE ORD * (ABNORMAL) LIPID PANEL (03/28/2005 9:40 AM CDT) CHOLESTEROL,TOTAL 210(H) 110 - 199 mg/dL [facility] TRIGLYCERIDES 99 40 - 149 mg/dL [facility] HDL CHOLESTEROL 50 41 - 95 mg/dL [facility] CHOL/HDL RATIO 4.20 <4.51 [facility] LDL CHOLESTEROL 140(H) 60 - 130 mg/dL [facility] PATIENT STATUS Fasting [facility] 03/28/2005 9:40 AM CDT 03/28/2005 2:52 PM CDT Jonny Patterson CHEMISTRY [facility] INTERNAL ZIP [address] [place] [address] from Last 3 Months or Most Recently Relevant to Health Maintenance Care Teams Fusion Analyst Relationship Specialty Start Date End Date Eren Vick MD PCP - General 09/09/08
== END 2024-08-06 08:58 | disposition home or self-care (01) ==
LOC: NFLDREF 08-07 10:28
PROVIDERS: PCP Family Medicine; Referring Provider Family Medicine; Visit Provider Family Medicine
DX: E87.6 Hypokalemia (principal); E78.00 Pure hypercholesterolemia, unspecified; I10 Essential (primary) hypertension; E03.9 Hypothyroidism, unspecified; E11.9 Type 2 diabetes mellitus without complications; R73.03 Prediabetes
CPT/HCPCS: 80053; 80061; 82043; 82570; 84443

== ENCOUNTER 2024-08-22 13:27 | Outpatient (CLI) | payer MEDICARE, SELFPAY ==
--- OUTSIDE RECORDS SUMMARY | 2024-08-22 13:29 | XMS_ITS | Clinical Summary ---
Author Organization [employer] [facility] [employer] [facility] Address [place], [place] [address] Care Team Providers Care Senior Storage Engineer Name Role Phone Eren Vick MD Primary [...] (IMITREX) 5 mg/actuation nasal spray Inhale 1 [place] in the nostril(s) every 2 hours if [...] Personal history of colonic polyps 01/03/2014 Overview (08/16/2024): Colonoscopy 12/2013 normal repeat in 5 years Colonoscopy 04/2019 polyps, repeat in 5 years Colonoscopy 07/2024 TA, repeat in 5 years Stenosis, spinal, lumbar 11/30/2011 Osteoarthritis, knee 11/30/2011 Edema 06/10/2006 Migraine, unspecified, witho ut mention of intractable migraine without mention of status migrainosus 06/10/2006 Unspecified essential hypertension 06/10/2006 Meniere's disease, unspecified 06/10/2006 Other pulmonary embolism and infarction 06/10/20 06 Overview (06/10/2006): after knee surgery Rosacea 06/10/2006 Unspecified sleep apnea 06/10/2006 Encounters Date Type Department Care Team Description 08/14/2024 7:11 AM CDT - 08/14/2024 11:59 PM CDT Hospital Encounter Deandre Chaudhari MD 08/14/2024 Orders Only [facility] Scanner 1 scan: (1-Ord) [facility] 08/14/2024 Lab Requisition [facility] [phone] Deandre Chaudhari MD 08/14/2024 Surgery [facility] [address] [address] Deandre Chaudhari MD colonoscopy 08/14/2024 Orders Only [facility] [address] [facility] [address] [place] [id number] Deandre Chaudhari MD <No scans attached> 08/06/2024 Telephone [facility] [address] [place] [address] Deandre Chaudhari MD Appointment Reminder (Colonoscopy on 08/14/2024 at [facility]) 06/20/2024 Telephone [facility] [address] [facility] [place] [address] Deandre Chaudhari MD Need Meds; Procedure 06/07/2024 Orders Only [facility] [address] [facility] [place] [address] Deandre Chaudhari MD <No scans attached> from [...] PCV) 2019 COVID-19 vaccine series ( - 2023- season) 2024 Influenza for age 65+ 06/23/2024 09/09/2005 , 08/08/2005, 07/30/2004 Colonoscopy through age 75 08/14/202908/14, 05/16/2019, 05/16/2019, Additional history exists Procedures Procedure Name Priority Date/Time Associated Diagnosis Comments LAB TRACKING EVENT Routine 08/14/2024 9: 00 AM CDT PATH TISSUE EXAM Routine 08/14/2024 9:00 AM CDT SCAN-COLONOSCOPY 08/14/2024 12:0 0 AM CDT LIPID PANEL Timed 03/28/2005 9:40 AM CDT SURGICAL PROCEDURE (TYPE PROCEDURE DESCRIPTION BELOW) Encounter for screening colonoscopy from Last 3 Months or Most Recently Relevant to Health Maintenance Results * LAB TRACKING EVENT (08/14/2024 9:00 AM CDT) Other (Other) Client Collect / Unknown 08/14/2024 9:00 AM CDT 08/14/2024 5:53 PM CDT Deandre Chaudhari MD LAB BILL ONLY [facility] [address] [place] [address], * PATH TISSUE EXAM (08/14/2024 9:00 AM CDT) Case Report Pathology Report ?Case: [id number] ? Authorizing Provider: ??Deandre Chaudhari MD ?? Collected: ? 08/14/2024 0900 ? Ordering Location: ? [facility] ?Received: ?08/14/20242026 ? Pathologist: ? Iram Jean DO ? Specimen: ?Transverse Colon Polyp ? 08/16/2024 10:08 AM CDT [facility] Final Diagnosis A) COLON, TRANSVERSE, POLYPECTOMY: 1. Tubular adenoma 2. Negative for high grade dysplasia 3. Per the colonoscopy report: ?? a. Polyp size: 5 mm ?? b. Resection: Complete ?? c. Retrieval: Complete 08/16/2024 10:08 AM CDT [facility] Clinical Information Ms. Whitman is a 69 y.o. who presents for colonoscopy examination. A 5 mm polyp was identified. 08/16/2024 10:08 AM CDT [facility] Gross Description A) Received in formalin is a 6 mm pink-farmer rubbery polyp. Apparent base is inked and polyp is sectioned. Tissue is entirely submitted in 1 cassette. It is labeled with the patient's name and designated transverse polyp. Thong Allan 08/14/2024 9:04 PM 08/16/2024 10:08 AM CDT [facility] Microscopic Description The final diagnosis is based on microscopic examination of appropriate sections of all specimens. 08/16/2024 10:08 AM CDT [facility] Additional Information Interpreted at [facility] - [address] [facility] [address] [address] 08/16/2024 10:08 AM CDT [facility] Other (Transverse Colon Polyp) 08/14/2024 9:00 AM CDT 08/14/2024 8:27 PM CDT Deandre Chaudhari MD PATHOLOGY/CYTOLOG Y [facility] [address] [place] [address], * SCAN-COLONOSCOPY (08/14/2024 12:00 AM CDT) Scanner OTHER * (ABNORMAL) LIPID PANEL (03/28/2005 9:40 AM CDT) CHOLESTEROL,TOTAL 210(H) 110 - 199 mg/dL [facility] TRIGLYCERIDES 99 40 - 149 mg/dL [facility] HDL CHOLESTEROL 50 41 - 95 mg/dL [facility] CHOL/HDL RATIO 4.20 <4.51 [facility] LDL CHOLESTEROL 140(H) 60 - 130 mg/dL [facility] PATIENT STATUS Fasting [facility] 03/28/2005 9:40 AM CDT 03/28/2005 2:52 PM CDT Jonny Patterson CHEMISTRY [facility] INTERNAL ZIP [address] [address] from Last 3 Months or Most Recently Relevant to Health Maintenance Care Teams Senior Storage Engineer Relationship Specialty Start Date End Date Eren Vick MD PCP - General 09/09/08
--- NOTE | 2024-08-22 14:00 | CRLHL7_ITS ---
For Patients: As a result of the Century Cures Act, medical imaging exams and procedure reports are released immediately into your electronic medical record. You may view this report before your referring provider. If you have questions, please contact your health care provider. DXA BONE MINERAL DENSITY STUDY Reason for exam: Osteoarthritis on left hip, ostoepenia. Current height (in): 62. Weight (lb): 195. Menopause age: 44. Ethnicity: White. 1. Have you had a previous hip or vertebral fracture? No. 2. Have you had any fractures during your adult life which did not result from significant trauma (e.g., auto accident)? No. 3. Did either of your parents have a hip fracture? No. 4. Do you smoke? No. 5. Have you ever taken Glucocorticoids? No. 6. Do you have rheumatoid arthritis? No. 7. Do you have secondary osteoporosis? No. 8. Do you drink 3 or more alcoholic drinks per day? No. 9. Are you being treated for osteoporosis? No. 10. Have you ever taken any of the following medications: Actonel, Evista, Fosamax, Miacalcin, Reclast, Boniva, Forteo, HRT (i.e. estrogen/hormone therapy), Protelos, Prolia, Vitamin D, Calcium, other ??? please specify. ANSWER: Yes, calcium. 11. Do you have any of the following medical conditions: Anorexia or bulimia, asthma or emphysema, end stage renal disease, hyperparathyroidism, any seizure disorders, cancer, inflammatory bowel diseases, hysterectomy, other ??? please specify. ANSWER: Yes, hysterectomy. 12. What was your maximum height (inches)? 64. 13. Do you perform weight bearing exercise regularly? No. 14. Do you regularly consume dairy products? Yes. 15. Do you drink caffeinated beverages? Yes. 16. At what age did your period start? 11. 17. Are you premenopausal? No. 18. How many full term pregnancies have you had? 2. 19. Have you ever missed your period for more than 6 months in a row (not including or menopause)? No. TECHNIQUE: Bone mineral density study was performed using the Check. FINDINGS: The results of the study expressed as bone mineral density (BMD) are as follows: Lumbar spine L1 to L3: BMD: 1.121 g/cm2. T-score: 0.9. Z-score: 3.0. Neck Left: BMD: 0.598 g/cm2. T-score: -2.3. Z-score: -0.5. Total Left: BMD: 0.846 g/cm2. T-score: -0.8. Z-score: 0.7. Radius Left 33%: BMD: 0.652 g/cm2. T-score: -1.2. Z-score: 0.8. IMPRESSION: Osteopenia. *Comparison exams done prior to 03/2020 were performed on different unit, [employer]. COMPARISON: Compared with scan of 08/17/2022, the bone mineral density has increased by 2.4 percent at the spine and increased by 1.6 percent at the hip, and increased by 1.5 percent at the radius. Compared with scan of 08/20/2020, the bone mineral density has decreased by 0.3 percent at the spine and increased by 0.6 percent at the hip, and decreased by 2.1 percent at the radius. FRAX 10-year Fracture Risk Major Osteoporotic Fracture: 12 percent Hip Fracture: 2.5 percent Reported Risk Factors: [place] () Neck BMD=0.598, BMI=35.7 Suhail Ferrari M.D. Diagnostic Radiologist [email or web address] SP/Dictated by: Suhail Ferrari MD @ 08/23/2024 11:15:00 AM (Electronically Signed)
== END 2024-08-22 13:28 | disposition home or self-care (01) ==
LOC: RAD 13:28
PROVIDERS: PCP Family Medicine; Visit Provider Family Medicine
DX: M85.80 Other specified disorders of bone density and structure, unspecified site (principal); M85.89 Other specified disorders of bone density and structure, multiple sites
CPT/HCPCS: 77080

== ENCOUNTER 2025-03-10 13:13 | Outpatient (CLI) | payer MEDICARE, BC, SELFPAY ==
[2025-03-10 16:33] LABS: Potassium* 4.3 mmol/L (3.6-5.1)
== END 2025-03-10 13:14 | disposition home or self-care (01) ==
LOC: NPINS 13:18
PROVIDERS: PCP Family Medicine; Visit Provider Surgery
DX: L90.5 Scar conditions and fibrosis of skin (principal); E78.00 Pure hypercholesterolemia, unspecified; E03.9 Hypothyroidism, unspecified; I10 Essential (primary) hypertension; E11.9 Type 2 diabetes mellitus without complications; E66.01 Morbid (severe) obesity due to excess calories; G47.33 Obstructive sleep apnea (adult) (pediatric); Z85.828 Personal history of other malignant neoplasm of skin; Z79.899 Other long term (current) drug therapy
CPT/HCPCS: 80053; 80061; 84132; 84443

== ENCOUNTER 2025-07-18 13:13 | Outpatient (CLI) | payer MEDICARE, BC, SELFPAY ==
--- NOTE | 2025-07-18 13:20 | CRLHL7_ITS ---
For Patients: As a result of the Century Cures Act, medical imaging exams and procedure reports are released immediately into your electronic medical record. You may view this report before your referring provider. If you have questions, please contact your health care provider. INDICATION: BILATERAL SCREENING MAMMOGRAM, ASYMPTOMATIC 70 Y/O FEMALE COMPARISON: 02/19/2024, 08/22/2022, 08/09/2021 TECHNIQUE: Digital mammogram in CC and MLO projections including computer-aided detection (CAD) and tomosynthesis. BREAST COMPOSITION: There are scattered areas of fibroglandular density. FINDINGS: No suspicious findings. ASSESSMENT: BI-RADS 1 Negative RECOMMENDATION: Annual screening mammogram. A lay language report of this examination will be provided to the patient. Dictated by: Suhail Ferrari MD @ 07/21/2025 08:53:03 (Electronically Signed)
== END 2025-07-18 13:14 | disposition home or self-care (01) ==
LOC: MAMMO 13:13
PROVIDERS: PCP Family Medicine; Visit Provider Family Medicine
DX: Z12.31 Encounter for screening mammogram for malignant neoplasm of breast (principal)
CPT/HCPCS: 77063; 77067

== ENCOUNTER 2025-07-28 09:53 | Outpatient (CLI) | payer MEDICARE, BC, SELFPAY | END 2025-07-28 09:54 | disposition home or self-care (01) | LOC: NFLDREF 07-30 15:56 | PROVIDERS: PCP Family Medicine; Referring Provider Family Medicine; Visit Provider Family Medicine | DX: E87.6 Hypokalemia (principal); E03.9 Hypothyroidism, unspecified; I10 Essential (primary) hypertension; E78.00 Pure hypercholesterolemia, unspecified; M85.80 Other specified disorders of bone density and structure, unspecified site; R73.03 Prediabetes | CPT/HCPCS: 80053; 80061; 82306; 84443 ==

== ENCOUNTER 2025-08-04 10:17 | Outpatient (CLI) | payer MEDICARE, BC, SELFPAY ==
--- NOTE | 2025-08-04 10:45 | CRLHL7_ITS ---
For Patients: As a result of the Century Cures Act, medical imaging exams and procedure reports are released immediately into your electronic medical record. You may view this report before your referring provider. If you have questions, please contact your health care provider. INDICATION: Nontoxic single thyroid nodule COMPARISON: none TECHNIQUE: Lopes scale and color Doppler images were acquired of the thyroid gland. FINDINGS: The thyroid echotexture is diffusely heterogeneous. Isthmus measures 2.5 millimeters. The right lobe measures 4.4 x 1.7 x 1.5 cm and the left lobe measures 4.2 x 1.4 x 1.3 cm in size. There are no suspicious masses or nodules. The color Doppler images demonstrate normal vascularity. There is no evidence of cervical lymphadenopathy or parathyroid mass. IMPRESSION: Diffusely heterogeneous thyroid. No thyroid nodule. Dictated by Suhail Ferrari MD @ 08/05/2025 8:27:40 AM (Electronically Signed)
== END 2025-08-04 10:18 | disposition home or self-care (01) ==
LOC: US 10:18
PROVIDERS: PCP Family Medicine; Visit Provider Family Medicine
DX: E04.1 Nontoxic single thyroid nodule (principal)
CPT/HCPCS: 76536